=== PATIENT | female | born 1960 | race Caucasian/White ===

== ENCOUNTER → 2020-09-20 | Outpatient (CLI) | payer OTHER ==
--- NOTE | 2020-09-20 17:05 | KCIC ---
Examination: 3 views of the right knee HISTORY: History of osteoarthritis. COMPARISON: None available Findings/ impression: Evaluation of the alignment of the knee joint is somewhat limited due to obliquity of the image parti cularly on the AP view. There is mild joint space loss identified in the glenohumeral joint likely de generative changes. Electronically signed by: Dat Chun MD (09/20/2020 5:03 PM) [id number]
== END ==
LOC: KCIC 14:46
PROVIDERS: ATTEND Family Medicine
DX: M17.11 Unilateral primary osteoarthritis, right knee (principal)
CPT/HCPCS: 73562